=== PATIENT | male | born 1975 | race Caucasian/White ===

== ENCOUNTER 2019-12-18 10:01 | Emergency (ER) | payer OTHER ==
[~2019-12-18] VITALS: Ht 180.3 cm; Wt 117.9 kg
[2019-12-18] MEDS ORDERED: NORCO 5-325 TA1 EAC2 PO (11:18)
[2019-12-18] MEDS ORDERED: FLEXERIL PO (11:18)
[2019-12-18] MEDS ORDERED: MEDROLDOSEPACK PO (11:18)
[2019-12-18 12:13] VITALS: BP 122/75
== END 2019-12-18 12:14 | disposition home or self-care (01) ==
LOC: M.ERS 10:01
DX: M54.6 Pain in thoracic spine (principal); Z88.5 Allergy status to narcotic agent; Z88.6 Allergy status to analgesic agent